=== PATIENT | female | born 1985 ===

== ENCOUNTER 2017-11-16 05:28 | Emergency (ER) | payer OTHER ==
[2017-11-16 05:30] VITALS: BMI 29.2
[2017-11-16 05:52] VITALS: RESP 20; O2SAT 99
[2017-11-16] MEDS ORDERED: Lidocaine 2% w Epi 1:100,000 Inj IJ ONE (06:04)
[2017-11-16] MEDS ORDERED: Lidocaine Hydrochloride 0 ML INJ ONE (06:31)
[2017-11-16] MEDS ORDERED: Tetanus/Diphtheria Toxoids 0.5 ml Syringe IM ONE ×2 (06:35→06:43)
--- NOTE | 2017-11-16 06:38 | C.PDOC ---
Time Seen by Provider: 11/16/17 05:47 Chief Complaint (Nursing): Syncope Past Medical History Vital Signs: Last Vital Signs Temp 98.9 F 11/16/17 05:44 Pulse 100 H 11/16/17 05:44 Resp 20 11/16/17 05:44 BP 112/74 11/16/17 05:44 Pulse Ox 99 11/16/17 05:44 - Social History Hx Alcohol Use: No Hx Substance Use: No ED Course And Treatment O2 Sat by Pulse Oximetry: 99 Medical Decision Making Medical Decision Making: alcohol abuse vs vasovagal syncope chin lac 3 cm now placed 4 ghada no further w/u required Disposition Doctor Will See Patient In The: Office Counseled Patient/Family Regarding: Studies Performed, Diagnosis - Disposition Disposition: HOME/ ROUTINE Disposition Time: 06:38 Condition: GOOD Forms: [facility] (Maldivian) - Clinical Impression Clinical Impression: Alcohol intoxication, Vasovagal attack, Chin laceration
--- NOTE | 2017-11-16 06:41 | C.PDOC ---
History Of Present Illness 32 y/o female presents to the ED for evaluation of laceration sustained about 1 hour ago. Patient was intoxicated at home, got up to go to the bathroom, and fell and sliced chin on something. No LOC. No other injuries. Time Seen by Provider: 11/16/17 05:47 Chief Complaint (Nursing): Syncope History Per: Patient History/Exam Limitations: no limitations Onset/Duration Of Symptoms: Hrs Current Symptoms Are (Timing): Still Present Past Medical History Reviewed: Historical Data, Nursing Documentation, Vital Signs Vital Signs: Last Vital Signs Temp 98.9 F 11/16/17 05:44 Pulse 100 H 11/16/17 05:44 Resp 20 11/16/17 05:44 BP 112/74 11/16/17 05:44 Pulse Ox 99 11/16/17 06:42 - Medical History Other PMH: fatty liver Surgical History: No Surg Hx Family History: States: No Known Family Hx - Social History Hx Tobacco Use: No Hx Alcohol Use: No Hx Substance Use: No Review Of Systems Except As Marked, All Systems Reviewed And Found Negative. Eyes: Negative for: Vision Change Musculoskeletal: Negative for: Neck Pain, Back Pain Skin: Positive for: Lesions (to chin) Neurological: Negative for: Weakness, Numbness, Headache, Dizziness Physical Exam - Physical Exam Appears: Non-toxic, No Acute Distress Skin: Normal Color, Warm, Dry Head: Atraumatic, Normacephalic, Laceration (3 cm linear laceration to chin) Eye(s): bilateral: Normal Inspection, PERRL, EOMI Oral Mucosa: Moist Neck: Normal ROM, Supple Chest: Symmetrical Cardiovascular: Rhythm Regular, No Murmur Respiratory: Normal Breath Sounds, No Rhonchi, No Wheezing Gastrointestinal/Abdominal: Soft, No Tenderness, No Guarding Extremity: Bilateral: Atraumatic, Normal Color And Temperature, Normal ROM Neurological/Psych: Oriented x3, Normal Speech, Normal Cranial Nerves, Normal Motor, Normal Sensation ED Course And Treatment O2 Sat by Pulse Oximetry: 99 (RA) Pulse Ox Interpretation: Normal Laceration - Laceration Repair laceration to chin Wound Length (In cm): 3 Description Of Wound: Linear Wound Cleansed With: Sterile Saline Anesthesia: Lidocaine 2%, With Epi Wound Examination: Irrigated With Saline Wound Closure: Xander (x4) Wound Complexity: Simple Medical Decision Making Medical Decision Making: Impression: alcohol abuse vs vasovagal syncope Time: 6:21 Initial Plan: * EKG * Accucheck * Xylocaine 2% w/ epi ordered for lac repair * tetanus booster given EKG is normal sinus rhythm at 92 bpm laceration repaired without difficulty *see procedure note* Pt stable for d/c home. Wound care instructions discussed with patient in detail Disposition Counseled Patient/Family Regarding: Studies Performed, Diagnosis, Need For Followup - Disposition Referrals: [facility] [Outside] Disposition: HOME/ ROUTINE Disposition Time: 06:38 Condition: GOOD Additional Instructions: regressa en 5 medina para sacar los engrapas limpa con agua y jabon diario pone un poquito bacitracin inguento y bendage limpio diario Instructions: Syncope (Fainting), Laceration Repair, Laceration Repair With Xander (DC) Forms: [employer] (Indonesian) Print Language: MALAGASY - POA Present On Arrival: Falls Or Trauma - Clinical Impression Clinical Impression: Alcohol intoxication, Vasovagal attack, Chin laceration - Scribe Statement The provider has reviewed the documentation as recorded by the Scribe (Zulma Farrell) Provider Attestation: All medical record entries made by the Scribe were at my direction and personally dictated by me. I have reviewed the chart and agree that the record accurately reflects my personal performance of the history, physical exam, medical decision making, and the department course for this patient. I have also personally directed, reviewed, and agree with the discharge instructions and disposition.
[2017-11-16] MEDS ORDERED: Bacitracin 500 Units/gm Oint Foilpak UD ONE (06:43)
[2017-11-16 06:54] VITALS: BP 108/69; PULSE 90; TEMP 97.9
--- NOTE | 2017-11-18 19:31 | CARD ---
APPROVED REPORT EKG Measurement Heart [id number] <Conclusion> Normal sinus rhythm Normal ECG
== END 2017-11-16 06:54 | disposition home or self-care (01) ==
LOC: C.ER 05:28
DX: F10.129 Alcohol abuse with intoxication, unspecified (principal); R55 Syncope and collapse; S01.81XA Laceration without foreign body of other part of head, initial encounter; W01.0XXA Fall on same level from slipping, tripping and stumbling without subsequent striking against object, initial encounter; Y92.009 Unspecified place in unspecified non-institutional (private) residence as the place of occurrence of the external cause; Z23 Encounter for immunization

== ENCOUNTER 2017-11-21 19:03 | Emergency (ER) | payer OTHER ==
[2017-11-21 19:03] VITALS: BMI 29.2
[2017-11-21 19:27] VITALS: BP 116/78; PULSE 78; RESP 16; TEMP 97.8; O2SAT 99
--- NOTE | 2017-11-21 20:21 | C.PDOC ---
History Of Present Illness 32 year old female presents to the ED for wound check. Patient underwent staple placement to her chin after she sustained a laceration to the area 5 days ago. Patient was advised to return in 5 days for staple removal. Patient states she has been experiencing intermittent pain to the area since her last visit. She denies fever, chills. Time Seen by Provider: 11/21/17 19:34 Chief Complaint (Nursing): Wound Check History Per: Patient History/Exam Limitations: no limitations Onset/Duration Of Symptoms: Days (5) Current Symptoms Are (Timing): Still Present Quality Of Symptoms: Painful Additional History Per: Patient Past Medical History Reviewed: Historical Data, Nursing Documentation, Vital Signs Vital Signs: Last Vital Signs Temp 97.8 F 11/21/17 19:25 Pulse 78 11/21/17 19:25 Resp 16 11/21/17 19:25 BP 116/78 11/21/17 19:25 Pulse Ox 99 11/21/17 21:47 - Medical History PMH: No Chronic Diseases Surgical History: No Surg Hx Family History: States: Unknown Family Hx - Social History Hx Tobacco Use: No Hx Alcohol Use: No Hx Substance Use: No Review Of Systems Constitutional: Negative for: Fever, Chills Skin: Positive for: Other (wound check ) Physical Exam - Physical Exam Appears: Non-toxic, No Acute Distress Skin: Normal Color, Warm, Dry, Other (four ghada in place with minimal tenderness to chin and right mandibular area. no erythema, swelling, discoloration or limitation of movement ) Eye(s): bilateral: Normal Inspection, PERRL Neurological/Psych: Oriented x3 ED Course And Treatment O2 Sat by Pulse Oximetry: 99 (on RA) Pulse Ox Interpretation: Normal Progress Note: Motrin PO administered. Four ghada removed successfully. Wound is well-healing. Two steri strips applied. Patient tolerated well and is ready for discharge with f/u instructions. Disposition Counseled Patient/Family Regarding: Diagnosis, Need For Followup, Rx Given - Disposition Referrals: [facility] [Outside] Disposition: HOME/ ROUTINE Disposition Time: 20:18 Condition: STABLE Additional Instructions: Apply bacitracin or neosporin ointment to area tylenol or advil for pain Return to ER if worse Instructions: Staple Removal Forms: [employer] (Kyrgyz) - Clinical Impression Clinical Impression: Removal of ghada - PA / [employer] / Resident Statement MD/DO has reviewed & agrees with the documentation as recorded. - Scribe Statement The provider has reviewed the documentation as recorded by the Scribe (Rocio Farnsworth) All medical record entries made by the Scribe were at my direction and personally dictated by me. I have reviewed the chart and agree that the record accurately reflects my personal performance of the history, physical exam, medical decision making, and the department course for this patient. I have also personally directed, reviewed, and agree with the discharge instructions and disposition.
== END 2017-11-21 20:25 | disposition home or self-care (01) ==
LOC: C.ER 19:03
DX: Z48.02 Encounter for removal of sutures (principal)